=== PATIENT | male | born 1995 | race Caucasian/White ===

== ENCOUNTER 2018-12-18 22:05 | Emergency (ER) | payer BC ==
[~2018-12-18] VITALS: Ht 177.8 cm; Wt 83.9 kg
[2018-12-18 22:05] VITALS: BP_SYST 127
--- NOTE | 2018-12-18 22:15 | NUR ---
Patient to ER bed 8 to gown for evaluation. Side rails up. Report given to MIKE GRIFFITHS.
--- NOTE | 2018-12-18 22:18 | NUR ---
Pt brought by self,A&Ox4, pt presents to ER for wound check s/o pilonidal cyst remove x 6 days to his sacral area, pt is afebrile, cap refill <3, respirations even and unlabored.
--- NOTE | 2018-12-18 22:20 | NUR ---
Junito Amaya at bedside examining patient.
[2018-12-18] MEDS ORDERED: SULFAMETHOXAZOLE/TRIMETHOPR DS 1 TABLET PO ONE (22:30)
[2018-12-18 22:49] VITALS: BP_SYST 120
--- NOTE | 2018-12-18 22:49 | NUR ---
Patient given written and verbal discharge instructions and verbalizes understanding. ER MD discussed with patient the results and treatment provided. Patient in stable condition. ID arm band removed. Rx Bactrim and Hydrocodone given. Patient educated on pain management and to follow up with PMD. Pain Scale 2/10 tolerable for pt . Opportunity for questions provided and answered. Medication side effect fact sheet provided.
== END 2018-12-18 22:49 | disposition home or self-care (01) ==
LOC: SED 22:05
DX: L76.82 Other postprocedural complications of skin and subcutaneous tissue (principal); R03.0 Elevated blood-pressure reading, without diagnosis of hypertension
CPT/HCPCS: 99283